=== PATIENT | female | born 1955 | race Caucasian/White ===

== ENCOUNTER 2019-03-02 10:13 | Day surgery (SDC) | payer MEDICARE, OTHER ==
[2019-03-02] MEDS ORDERED: MIDAZOLAM 1 MG/ML 2 ML INJ (11:33)
[2019-03-02] MEDS ORDERED: LIDOCAINE 2% (SDV) 5 ML INJ (11:33)
[2019-03-02] MEDS ORDERED: PROPOFOL 20 ML (11:33)
[2019-03-02] MEDS ORDERED: FENTAnyl 50 MCG/ML VIAL (11:33)
[2019-03-02] MEDS ORDERED: LIDOCAINE 4% SOLUTION 50 ML BTL (11:33)
== END 2019-03-02 13:43 | disposition home or self-care (01) ==
LOC: GIL 10:13
DX: R19.4 Change in bowel habit (principal); K64.8 Other hemorrhoids; K29.30 Chronic superficial gastritis without bleeding; D12.6 Benign neoplasm of colon, unspecified; K44.9 Diaphragmatic hernia without obstruction or gangrene; K21.9 Gastro-esophageal reflux disease without esophagitis; I10 Essential (primary) hypertension
CPT/HCPCS: 43239; 88305; 88312